=== PATIENT | male | born 1985 | race Caucasian/White ===

== ENCOUNTER 2017-11-20 07:21 | Outpatient (CLI) | payer MEDICARE ==
[~2017-11-20] VITALS: Ht 182.9 cm; Wt 83.9 kg
[~2017-11-20 07:21] MED LIST: CARDIZEM CD240 MG PO; CLONAZEPAM2 MG/TAB PO; HYDROCHLOROTHIA25 MG; HYDROCHLOROTHIA25 MG PO; NEPHRO-VITE RX1 TAB; NEPHRO-VITE RX1 TAB PO; PEPCID20 MG PO
[2017-11-20 08:00] VITALS: Ht 182.9 cm; Wt 83.9 kg
[2017-11-20 08:13] LABS: BASOPHILS 0.5 % (0-2); EOSINOPHILS 1.7 % (0-7); HEMATOCRIT 44.6 % (42.0-54.0); HEMOGLOBIN 14.4 g/dL (13.5-17.5); IMMATURE GRANULOCYTES 0.2 % (0-5); MCH 30.4 pg (26.0-34.0); MCHC 32.3 g/dL (31.0-37.0); MCV 94.3 fL (80.0-100.0); MEAN PLATELET VOLUME 10.4 fL (7.4-10.4); MONOCYTES 8.2 % (2-11); NEUTROPHILS 70.4 % (40-80); RBC 4.73 10x6/uL (4.20-6.10); RDW 14.1 % (11.5-14.5); WBC 6.3 10x3/uL (4.8-10.8)
[2017-11-20 08:15] LABS: PLATELET COUNT 213 10x3/uL (130-400)
[2017-11-20 08:22] LABS: APTT 37.5 SECONDS (22.8-39.4); INR 1.08 (0.85-1.17); PROTIME 13.6 SECONDS (11.6-15.0)
[2017-11-20 08:44] LABS: ANION GAP 20.4 mmol/L (8-16); CALCIUM 10.3 mg/dL (8.5-10.1); CARBON DIOXIDE 24.1 mmol/L (21.0-32.0); CREATININE - SERUM 7.6 mg/dL (0.6-1.3); POTASSIUM - SERUM 3.5 mmol/L (3.5-5.1)
== END 2017-11-20 11:20 | disposition home or self-care (01) ==
LOC: D.OPS 07:21 → EDSTATUS 10:00 → D.OPS 11:20
PROVIDERS: Surgery
DX: I12.0 Hypertensive chronic kidney disease with stage 5 chronic kidney disease or end stage renal disease (principal); N18.6 End stage renal disease; Z99.2 Dependence on renal dialysis; Z01.810 Encounter for preprocedural cardiovascular examination; Z01.811 Encounter for preprocedural respiratory examination; Z01.812 Encounter for preprocedural laboratory examination; Z53.9 Procedure and treatment not carried out, unspecified reason